=== PATIENT | male | born 1980 | race Caucasian/White ===

== ENCOUNTER 2019-07-24 06:08 | Emergency (ER) | payer MEDICARE, MEDICAID ==
[~2019-07-24] VITALS: Ht 170.2 cm; Wt 54.5 kg
[2019-07-24] MEDS ORDERED: SODIUM CHLORIDE FLUSH 10ML SYR IVF ONE (06:30)
[2019-07-24] MEDS ORDERED: SODIUM CHLORIDE 0.9% 1,000ML IVBOLUS ONE (06:30)
--- NOTE | 2019-07-24 06:39 | NUR ---
task rn: piv established. blood drawn and sent to lab. warm blankets and portable curt hugger applied to pt.
[2019-07-24 06:51] LABS: BASOPHILS # (AUTO) 0.04 x10^3/uL (0-0.1); BASOPHILS % (AUTO) 0 % (0-1); EOSINOPHILS # (AUTO) 0.13 x10^3/uL (0-0.4); EOSINOPHILS % (AUTO) 1 % (1-7); LYMPHOCYTES # (AUTO) 2.25 x10^3/uL (1-3.4); LYMPHOCYTES % (AUTO) 25 % (22-44); MD NO; MEAN CORPUSCULAR HEMOGLOBIN 31.6 pg (27.5-34.5); MEAN CORPUSCULAR HGB CONC 33.4 g/dL (33.2-36.2); MEAN CORPUSCULAR VOLUME 94.7 fL (81-97); MEAN PLATELET VOLUME 8.9 fL (7.4-10.4); MONOCYTES # (AUTO) 0.31 x10^3/uL (0.2-0.8); MONOCYTES % (AUTO) 3 % (2-9); NEUTROPHILS # (AUTO) 6.43 x10^3/uL (1.8-6.8); NEUTROPHILS % (AUTO) 70 % (42-75); PLATELET COUNT 271 x10^3/uL (130-400); RED BLOOD COUNT 5.91 x10^6/uL (4.38-5.82); RED CELL DISTRIBUTION WIDTH 13.9 % (9.4-14.8)
[2019-07-24 06:58] LABS: ALANINE AMINOTRANSFERASE 20 U/L (12-78); ANION GAP 13 mmol/L (5-15); CALCIUM 9.5 mg/dL (8.5-10.1); CHLORIDE 102 mmol/L (98-107); CREATININE 1.12 mg/dL (0.7-1.3)
[2019-07-24 07:00] LABS: ALKALINE PHOSPHATASE 76 U/L (45-117); BILIRUBIN,TOTAL 1.3 mg/dL (0.2-1.0); TOTAL PROTEIN 7.6 g/dL (6.4-8.2)
--- NOTE | 2019-07-24 07:07 | NUR ---
REPORT FROM YUMIKO. PT RESTING. NO NEEDS A THIS TIME
--- NOTE | 2019-07-24 07:22 | NUR ---
Ana Luisa hernandez in ED - 07/24/19 at 0753 by [facility] AT BEDSIDE. PT TACHY 120'S LYING IN BED. NO OTHER NEEDS AT THIS TIME
[2019-07-24 07:50] VITALS: BP 128/77
--- NOTE | 2019-07-24 08:33 | NUR ---
Patient/Caregiver given discharge instructions and they have confirmed that they understand the instructions. Patient ambulatory with steady gait.
== END 2019-07-24 08:34 | disposition home or self-care (01) ==
LOC: ED 06:48
DX: T68.XXXA Hypothermia, initial encounter (principal); E86.0 Dehydration; R00.0 Tachycardia, unspecified; F17.210 Nicotine dependence, cigarettes, uncomplicated; X31.XXXA Exposure to excessive natural cold, initial encounter
CPT/HCPCS: 36415; 71045; 80053; 85025; 93005; 96360; 99285; J7030